=== PATIENT | male | born 1960 | race Caucasian/White ===

== ENCOUNTER 2018-12-29 11:36 | Emergency (ER) | payer BC ==
--- OUTSIDE RECORDS SUMMARY | 2018-12-29 11:37 | XMS REPORT | Clinical Summary ---
:1960 Author Organization [facility] Address [address] [place] [address] Care Team Providers Name Role Phone Unavailable Primary Care Provider Unavailable Allergies Not on File Medications Not on file Active Problems Not on file Social History Tobacco Use Types Packs/Day Years Used Date Never Assessed Sex Assigned at Date Recorded Not on file Job Start Date Occupation Industry Not on file Not on file Not on file Travel History Travel Start Travel End No recent travel history available. 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
--- NOTE | 2018-12-29 12:50 | EDPHYS ---
Physician Documentation [facility] Name: Timothy Kelly Jr Age: 58 yrs Sex: Male : 1960 Arrival Date: 12/29/2018 Time: 11:37 Bed 20 Private MD: ED Physician Sai Durán HPI: 12/29 11:48 This 58 yrs old Male presents to ER via Ambulatory with complaints of finger jmm laceration. 11:48 The complaints affect the palmar aspect of proximal phalanx of right thumb, right jmm proximal 3rd phalanx. Onset: The symptoms/episode began/occurred acutely, just prior to arrival. This is a 58 year old male with a history of htn that presents to the ED with lacerations to his right 1st and third phalanxes. Patient states while [place] fishing the patient got his hand caught in a quarter inch cable line. Patient was able to remove his hand. Patient is UTD on tetanus immunizations. . Historical: - Allergies: 11:42 No Known Allergies; la1 - PMHx: 11:42 Hypertension; la1 - Immunization history:: Adult Immunizations up to date. - Social history:: Smoking status: Patient/guardian denies using tobacco. - Ebola Screening: : No symptoms or risks identified at this time. ROS: 11:48 Constitutional: Negative for fever, chills, and weight loss, Cardiovascular: Negative jmm for chest pain, palpitations, and edema, Respiratory: Negative for shortness of breath, cough, wheezing, and pleuritic chest pain. 11:48 MS/extremity: Positive for injury or acute deformity, laceration. 11:48 Skin: Positive for laceration(s). 11:48 All other systems are negative. Exam: 11:48 Constitutional: This is a well developed, well nourished patient who is awake, alert, jmm and in no acute distress. Head/Face: atraumatic. Eyes: EOMI, no conjunctival erythema appreciated ENT: Moist Mucus Membranes Neck: Trachea midline, Supple Chest/axilla: Normal chest wall appearance and motion. Cardiovascular: Regular rate and rhythm. No edema appreciated Respiratory: Normal respirations, no respiratory distress appreciated Abdomen/GI: Non distended, soft Back: Normal ROM 11:48 Skin: injury, laceration(s), the wound is approximately 3 cm(s), of the palmar aspect of proximal phalanx of right middle finger, the second wound is approximately 3 cm(s), of the dorsal aspect of proximal phalanx of right thumb. 11:48 Neuro: Orientation: is normal, Mentation: is normal, Memory: is normal. 11:48 Psych: Behavior/mood is pleasant, cooperative. 11:48 Musculoskeletal/extremity: FROM appreciated to the right 3rd finger and 1st finger jmm against resistance. Sensory deficit appreciated to the base of the right 3rd finger, < 2 sec distal cap refill, NVI. Vital Signs: 11:43 BP 133 / 95; Pulse 87; Resp 16; Temp 97.1; Pulse Ox 100% on R/A; Weight 94.35 kg; la1 Height 5 ft. 11 in. (180.34 cm); 11:43 Body Mass Index 29.01 (94.35 kg, 180.34 cm) la1 Laceration: 12:00 Wound Repair of 3cm ( 1.2in ) subcutaneous laceration to dorsal aspect of proximal jmm phalanx of right thumb. Distal neuro/vascular/tendon intact. Anesthesia: Digital block administered with 3 mls of 0.5% marcaine. Wound prep: Extensive cleansing with betadine by me. Skin closed with 4 5-0 Prolene using simple sutures and sterile technique. Patient tolerated well. 12:00 Wound Repair of 3cm ( 1.2in ) subcutaneous laceration to palmar aspect of proximal jmm phalanx of right middle finger. Distal neuro/vascular/tendon intact. Anesthesia: Digital block administered with 3 mls of 0.5% marcaine. Wound prep: Extensive cleansing with betadine by me. Skin closed with 4 5-0 Prolene using simple sutures and sterile technique. Patient tolerated well. MDM: 11:48 Patient medically screened. [facility] 12:48 Data reviewed: vital signs, nurses notes. Counseling: I had a detailed discussion with [employer] the patient and/or guardian regarding: the historical points, exam findings, and any diagnostic results supporting the discharge/admit diagnosis, the need for outpatient follow up, to return to the emergency department if symptoms worsen or persist or if there are any questions or concerns that arise at home. Administered Medications: 11:55 Drug: Marcaine (0.5 %) 10 ml {Note: administered by Frank, PA.} Volume: 10 ml; Route: em Infiltration; Disposition: 12/29/18 12:48 Discharged to Home. Impression: Finger Laceration. - Condition is Stable. - Discharge Instructions: Laceration Care, Adult. - Prescriptions for Doxycycline Monohydrate 100 mg Oral Tablet - take 1 tablet by ORAL route every 12 hours for 10 days; 20 tablet. - Medication Reconciliation Form, Thank You Letter, Antibiotic Education, Prescription Opioid Use form. - Follow up: Private Physician; When: 7 - 10 days; Reason: Recheck today's complaints, Continuance of care, Staple/Suture removal, Re-evaluation by your physician. Addendum: 12/31/2018 09:09 Co-signature as Attending Physician, Sai Durán MD I agree with the assessment and c hartman plan of care. Signatures: Sai Durán MD MD cha Mickail, Joel, PA PA jmm Munoz, Edgar, SECOND RIGGER SECOND RIGGER Jose Maria Whaley, RN RN la1 Corrections: (The following items were deleted from the chart) 12/29 12:53 12:48 12/29/2018 12:48 Discharged to Home. Impression: Finger Laceration. Condition is em Stable. Forms are Medication Reconciliation Form, Thank You Letter, Antibiotic Education, Prescription Opioid Use. Follow up: Private Physician; When: 7 - 10 days; Reason: Recheck today's complaints, Continuance of care, Staple/Suture removal, Re-evaluation by your physician. elin
--- NOTE | 2018-12-29 12:50 | ER ---
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 Laceration noted. bleeding controlled. Transition of care: patient was not received from another setting of care. Onset of symptoms was December 29, 2018. Risk Assessment: Do you want to hurt yourself or someone else? Patient reports no desire to harm self or others. Initial Sepsis Screen: Does the patient meet any 2 criteria? No. Patient's initial sepsis screen is negative. Does the patient have a suspected source of infection? No. Patient's initial sepsis screen is negative. Care prior to arrival: None. 11:41 Method Of Arrival: Ambulatory la1 11:41 Acuity: ESTHER 4 la1 Historical: - Allergies: 11:42 No Known Allergies; la1 - PMHx: 11:42 Hypertension; la1 - Immunization history:: Adult Immunizations up to date. - Social history:: Smoking status: Patient/guardian denies using tobacco. - Ebola Screening: : No symptoms or risks identified at this time. Screenin:54 Abuse screen: Denies threats or abuse. Nutritional screening: No deficits noted. em Tuberculosis screening: No symptoms or risk factors identified. Fall Risk None identified. Assessment: 11:54 General: Appears in no apparent distress. comfortable, Behavior is calm, cooperative. em Pain: Complains of pain in dorsal aspect of proximal phalanx of right thumb and palmar aspect of proximal phalanx of right thumb. Neuro: Level of Consciousness is awake, alert, obeys commands, Oriented to person, place, time, situation. Cardiovascular: Capillary refill < 3 seconds Patient's skin is warm and dry. Respiratory: Airway is patent Respiratory effort is even, unlabored, Respiratory pattern is regular, symmetrical. Derm: Skin is intact, is healthy with good turgor, Skin is pink, warm \T\ dry. Injury Description: Laceration sustained to dorsal aspect of proximal phalanx of left thumb and palmar aspect of proximal phalanx of left thumb. 11:54 Reassessment: I agree with assessment completed by Bruce Metz LVN, no active bleeding aa5 at this time. . 12:34 Reassessment: provider at bedside suturing. em Vital Signs: 11:43 BP 133 / 95; Pulse 87; Resp 16; Temp 97.1; Pulse Ox 100% on R/A; Weight 94.35 kg; la1 Height 5 ft. 11 in. (180.34 cm); 11:43 Body Mass Index 29.01 (94.35 kg, 180.34 cm) la1 ED Course: 11:37 Patient arrived in ED. mr 11:40 Bruce Metz LVN is Primary Nurse. em 11:41 Frank Ovlera PA is PHCP. [facility] 11:41 Sai Durán MD is Attending Physician. [facility] 11:42 Triage completed. la1 11:42 Arm band placed on left wrist. la1 11:54 Patient has correct armband on for positive identification. Side rails up X2. Adult w/ em patient. 12:33 Assist provider with laceration repair on palmar aspect of proximal phalanx of right em thumb and dorsal aspect of proximal phalanx of right thumb that was between 2.6 to 7.5 cm using sutures. Set up tray. Performed by Frank ARCE Dressed with 4X4s, Kerlix, Patient tolerated well. 12:53 Patient did not have IV access during this emergency room visit. em Administered Medications: 11:55 Drug: Marcaine (0.5 %) 10 ml {Note: administered by YAZMIN Marie.} Volume: 10 ml; Route: em Infiltration; Outcome: 12:48 Discharge ordered by . [facility] 12:52 Discharged to home ambulatory, with friend. em 12:52 Condition: good 12:52 Discharge instructions given to patient, friend, Instructed on discharge instructions, follow up and referral plans. medication usage, wound care, Demonstrated understanding of instructions, follow-up care, medications, wound care, Prescriptions given X 1. 12:53 Patient left the ED. em Signatures: Frank Olvera PA PA jmm JobyLizette mr Isaías JAZMIN Barrera INSTRUCTIONAL SYSTEMS DESIGN CONSULTANT em Sheree Mcgee RN RN aa5 Attema, Jose Maria, RN RN la1
== END 2018-12-29 12:53 | disposition home or self-care (01) ==
LOC: ER 11:36
PROC: 0JQJ0ZZ Repair Right Hand Subcutaneous Tissue and Fascia, Open Approach (ICD-10-PCS; principal; 2018-12-29)
DX: S61.011A Laceration without foreign body of right thumb without damage to nail, initial encounter (principal); S61.212A Laceration without foreign body of right middle finger without damage to nail, initial encounter; W45.8XXA Other foreign body or object entering through skin, initial encounter; Y93.89 Activity, other specified; Y92.9 Unspecified place or not applicable
CPT/HCPCS: 99283